=== PATIENT | male | born 1995 | race Caucasian/White ===

== ENCOUNTER 2025-01-05 16:16 | Emergency (ER) | payer OTHER, SELFPAY ==
--- NOTE | 2025-01-05 16:17 | ED.EAR ---
HPI - Ear Problem General Chief complaint: Ear Stated complaint: LT Ear Clogged Time Seen by Provider: 01/05/25 16:29 Source: patient, RN notes reviewed and old records reviewed Mode of arrival: ambulatory Limitations: no limitations History of Present Illness HPI Narrative: 29 male to [facility] with concerns for a cerumen impaction to the left ear States approximately 1 year ago he had to them irrigated again. States that he has been using Q-tips and irrigating his use with no relief. Decreased hearing for the last 2-3 day Related Data Home Medications ?Medication ?Instructions ?Recorded ?Confirmed ?Last Taken ?Type dextroamphetamine-amphetamine 10 01/05/25 Unknown History mg tablet lisdexamfetamine 60 mg capsule mg 01/05/25 Unknown History Allergies Allergy/AdvReac Type Severity Reaction Status Date / Time No Known Allergies Allergy Verified 01/05/25 16:29 Review of Systems Review of Systems: All systems reviewed & are unremarkable except as noted in HPI and below Constitutional: Constitutional: Reports no additional constitutional complaints ENT: Reports as per HPI Cardiovascular: Cardiovascular: Reports no additional cardiovascular complaints, Denies chest pain and Denies dyspnea Respiratory: Respiratory: Reports no additional respiratory complaints, Denies chest congestion, Denies cough and Denies dyspnea Musculoskeletal: Musculoskeletal: Reports no additional musculoskeletal complaints Integumentary/Breasts: Skin/Breast: Reports system reviewed and no additional complaints, except as docu PMFSH Comments At the time of my signature, I reviewed and agree with the nursing past medical, surgical, social, and family history. There is no relevant family history pertinent to the patient complaint. Exam Const: General: cooperative, healthy appearing, comfortable, no acute distress, well developed, alert and well nourished Nutritional Appearance: well nourished Orientation/consciousness: patient oriented x3 Limitations: no limitations HENMT: Head: normal to inspection Ears: hearing grossly normal bilaterally, external ears normal, EAC's normal, mastoids normal, Abnormal EAC present cerumen impaction bilateral and unable to visualize TM Mouth: Yes Normal oral and palatal mucosa present, Yes lip normal, Yes tongue normal and Yes moist mucous membranes Eyes: General: appearance normal, both eyes and all related structures Alignment and Position: alignment normal Neck: Neck: normal visual inspection, full ROM, no lymphadenopathy and no meningeal signs Chest: Chest palpation & inspection: normal inspection of the chest Resp: Effort & Inspection: normal respiratory effort and able to speak in complete sentences Cardio: Rate: regular rate Skin: General skin exam: normal color and no rashes or lesions noted Neuro: General: patient oriented x3, gait normal, moves all extremities and no meningeal signs Cognition (Neuro): normal cognition Speech: normal speech Gait exam (Neuro): Normal gait present Extrem: General: normal to inspection, full ROM, capillary refill normal and normal gait Psych: Appearance: grossly normal and well kempt Mental Status: mental status grossly normal Speech and movement: Normal speech and movement present and Clear speech present Affect: normal affect Attitude: cooperative Course Course Level of Care: Express Care Visit Vital Signs Vital signs: Vital Signs Temperature 97.6 F 01/05/25 16:29 Pulse Rate 63 01/05/25 16:29 Respiratory Rate 16 01/05/25 16:29 Blood Pressure 126/69 01/05/25 16:29 Pulse Oximetry 99 01/05/25 16:29 Oxygen Delivery Room Air 01/05/25 16:29 Temperature 97.6 F 01/05/25 16:29 Pulse Rate 63 01/05/25 16:29 Respiratory Rate 16 01/05/25 16:29 Blood Pressure 126/69 01/05/25 16:29 Pulse Oximetry 99 01/05/25 16:29 Oxygen Delivery Room Air 01/05/25 16:29 Reviewed Procedures Ear Wax Removal Both Ears: Ear Wax Removal Date: 01/05/25 Ear Wax Removal Time: 16:35 Cerumenolytic Used: other ( water peroxide) Results: Re-examined: cerumen removed completely TM Examination: TM(s) intact, normal appearance Ear Canal Exam: atraumatic Patient Tolerated Procedure: well Complications: no problems Technique: ear canal irrigated and ear canal curetted Medical Decision Making MDM Narrative Medical decision making narrative: Patient sitting comfortably in exam room. Nontoxic, vitals stable. Patient in no acute distress Patient presents for cerumen removal. Able to remove cerumen without difficulty using water peroxide and a curette. Patient tolerated well patient appropriate for outpatient treatment and follow-up Discharge instructions reviewed with patient, as well as provided in writing per nursing staff. The instructions also include specific and strict return/GO TO THE ER as well as f/u information. All questions have been answered, and the patient deny any further questions with discharge and discharge plan. Some parts of this dictation were generated by voice recognition software and may contain typographical and/or grammatical inaccuracies. Differential Diagnosis Differential Diagnosis: excessive cerumen Medical Records Medical records reviewed: Yes I reviewed the external patient's medical records. Vital Signs Vital Signs: Vital Signs Temperature 97.6 F 01/05/25 16:29 Pulse Rate 63 01/05/25 16:29 Respiratory Rate 16 01/05/25 16:29 Blood Pressure 126/69 01/05/25 16:29 Pulse Oximetry 99 01/05/25 16:29 Oxygen Delivery Room Air 01/05/25 16:29 Temperature 97.6 F 01/05/25 16:29 Pulse Rate 63 01/05/25 16:29 Respiratory Rate 16 01/05/25 16:29 Blood Pressure 126/69 01/05/25 16:29 Pulse Oximetry 99 01/05/25 16:29 Oxygen Delivery Room Air 01/05/25 16:29 Reviewed Lab Data Lab results reviewed: Yes I reviewed the patient's lab results. Labs: Reviewed Critical Care Time Critical Care Time Critical Care Time: No Discharge Plan Discharge Clinical Impression: Bilateral impacted cerumen Patient Disposition: Home, Self-Care Condition: Stable Instructions: Antibiotic Form, Carbamide Peroxide (Into the ear) Additional Instructions: You had Cerumen (EAR wax impaction). Do not use Q-tips or put anything in the ear. This can damage the ear. Instead , use Debrox or ear wax remover. Place 5 drops in ear after a hot shower and place a warm compress over the ear for 20 minutes. alternate doing this every 3-4 days. It will break up the wax gently. Do not use too much pressure. Once you have all of the cerumen out of your ears, you may do preventative treatment to prevent this from happening again. Use 5 drops once weekly after a hot shower. Patient Language: Greenlandic Prescriptions: No Action dextroamphetamine-amphetamine 10 mg tablet lisdexamfetamine 60 mg capsule Follow-up/Referrals: UNKNOWN,DOCTOR [Non-Staff] - Time of Disposition: 16:45
[2025-01-05 16:29] VITALS: BP 126/69; PULSE 63; RESP 16; TEMP 36.4; O2SAT 99
--- OUTSIDE RECORDS SUMMARY | 2025-01-05 17:25 | XMS_ITS | Clinical Summary ---
Author Organization [facility] Address [address] [place] [address] Care Team Providers Care General Internal Medicine Doctor Name Role Phone Dhaval Flores MD Primary Care Provider [phone] Source Comments [facility],non-owned Affiliates and Associated Physician Practices is amultiple site organization consisting of ambulatory clinics and hospital sitesin [place], [place], [place] and [place]. This disclosure is being madepursuant to the Care Everywhere program and may not contain all information available regarding this patient. Last updated 18.[facility] Allergies No known active allergies Medications * Be aware that medications may not be up to date on this document. Alwaysverify current medications with the patient. Medication Sig Dispensed Refills Start Date End Date Status mupirocin (Bactroban) 2 % ointmentIndications:F olliculitis Apply to affected area 3 times daily 22 g 08/09/2023 Active amphetamine-dextroamp hetamine XR 24hr (Adderall XR) 30 MG capsuleIndications:At tention deficit hyperactivity disorder (ADHD), combined type Take 1 (one) capsule by mouth every morning 30 capsule 12/17/2023 Active amphetamine-dextroamp hetamine (Adderall) 10 MG tabletIndications:Att ention deficit hyperactivity disorder (ADHD), combined type Take 1 (one) tablet by mouth every afternoon 30 tablet 12/17/2023 Active Active Problems Problem Noted Date Diagnosed Date Attention deficit hyperactiv ity disorder (ADHD), combined type 12/26/2020 Allergic rhinitis 07/18/2010 Migraine 05/20/2008 Anxiety Immunizations Name Administration Dates Next Due INFLUENZA VACCINE, TRIV. (AF LURIA, FLUZONE TRIVALENT; 6MO+) (IIV3) 07/31/2012 Covid Moderna primary monova lent 12+ yr 0.5mL 09/18/2021 Covid Pfizer primary monoval ent 12+ yr 0.3mL Purple cap 03/18/2021,02/28/2021 DTP 02/23/1999, 6,1994,09/19,1994 DTaP VACCINE IM (6wk-6yrs) 10/10/1995,,1994,07/30 FLU VACCINE TRI IIV3 SPLIT P F IM (FLUVIRIN) 07/23/2019,08/11/2018 HEP A PEDS 2 DOSE 08/03/2008,11/21/2007 HEP B VACCINE, PED/ADOL 1994,1994, HIB VACCINE 10/10/1995, 5,1994,07/30 HepB Unspecified formulation 1994,07/30/19 94,1994 INFLUENZA VACCINE 07/07/2021, 0,07/31/2015,07/24,07/31/2012,09/10/2009,08/23/1997 INFLUENZA VACCINE, CELL CULT URE, QUADR. (FLUCELVAX QUADRIVALENT; 6MO+) (CCIIV4) 06/07/2023 INFLUENZA VACCINE, QUADR. (F LUZONE; FLULAVAL; FLUARIX; AFLURIA QUADRIVALENT; 6MO+), 0.5 ML (IIV4) 07/19/2022,07/18/2022,07/07/2015 INFLUENZA VACCINE, TRIV. (FL UZONE; FLULAVAL; FLUARIX; AFLURIA TRIVALENT; 6MO+), 0.5 ML (IIV3) 07/31/2015 Influenza Nasal 07/18/2010 MENINGOCOCCAL CONJUGATE (MCV4P) 11/21/2007 MMR 02/23/1999,10/10/1995 POLIO IPV 02/04/1995, 5,1994,07/30 POLIO OPV 02/23/1999, 5,1994,07/30 TDAP (7yrs+) 05/09/2020, 3,11/21/2007,02/23 Family History Medical History Relation Name Comments Alcohol abuse Father Colon polyps Father Hypertension Father Cancer Maternal Grandfather Alcohol abuse Mother Cancer - Colon Other maternal grea t grandmother Relation Name Status Comments Father Maternal Grandfather Mother Alive Other Social History Tobacco Use Types Packs/Day Years Used Date Smoking Tobacco: Never Smokeless Tobacco: Never Alcohol Use Standard Drinks/Week Comments Yes 0 (1 standard drink = 0.6 oz pur e alcohol) AUDIT-C Answer Date Recorded Q1: How often do you have a drink containing alc ohol? 2-4 times a month 12/26/2020 Average Number of Drinks Not on file 021 Frequency of Binge Drinking Not on file 12/06 PHQ-2 Answer Date Recorded PHQ2 TOTAL SCORE 0 12/17/2022 Sex and Gender Information Value Date Recorded Sex Assigned at Not on file Gender Identity Male 06/30/2021 10:39 AM CDT Sexual Orientation Straight 06/30/2021 10 :39 AM CDT Last Filed Vital Signs Vital Sign Reading Time Taken Comments Blood Pressure 128/82 08/09/2023 2:34 PM CDT Pulse 87 08/09/2023 2:34 PM CDT Temperature 36.9 C (98.4 F) 02/16/2022 5:24 AM CDT Respiratory Rate 20 02/16/2022 5:24 AM CDT Oxygen Saturation 98% 08/09/2023 2:34 PM CDT Inhaled Oxygen Concentration - - Weight 85.3 kg (188 lb) 08/09/2023 2:34 PM CDT Height 182.9 cm (6') 08/09/2023 2:34 PM CDT Body Mass Index 25.5 08/09/2023 2:34 PM CDT Plan of Treatment Health Maintenance Due Date Last Done Comments COVID-19 VACCINE () 06/07/2024 09/18/2021, 03/18/2021, 02/28/2021 DEPRESSION SCREENING 10/07/2024 12/17/2022, 12/15/19 INFLUENZA VACCINE (Season Ended) 2025 06/07/2023, 07/19/2022, 07/18/2022, Additional history exists DTAP/TDAP/TD VACCINES (9 - Td or Tdap) 05/09/2030 05/09/2020, 02/20/2013, 11/21/2007, Additional history exists ZOSTER VACCINE (1 of 2) 2044 HEPATITIS B VACCINE Completed 1994, 1994, 1994, Additional history exists HIB VACCINE Completed 10/10/1995, 10/1994, 1994, Additional history exists MENINGOCOCCAL GROUPS A/C/Y/W VACCINE Aged Out 11/21/2007 No longer eligible based on patient's age to complete this topic HEPATITIS C SCREENING Completed 01/02/2021 HIV SCREENING Completed 01/02/2021 HPV VACCINE Aged Out No longer eligi ble based on patient's age to complete this topic MENINGOCOCCAL (Group B) VACCINE SHARED DECISION-MAKING Aged Out No longer eligible based on patient's age to complete this topic PNEUMOCOCCAL VACCINE Aged Out No long er eligible based on patient's age to complete this topic Procedures Procedure Name Priority Date/Time Associated Diagnosis Comments HEPATITIS C ANTIBODY Routine 01/02/2021 4:07 PM CDT Need for hepatitis C screening test HIV-1 HIV-2 ANTIBODY + HIV P24 AG PANEL Routine 01/02/2021 4:05 PM CDT Encounter for screening for HIV from Last 3 Months or Most Recently Relevant to Health Maintenance Results * HEPATITIS C ANTIBODY (01/02/2021 4:07 PM CDT) Hepatitis C Antibody Non Reactive Non Reactive [facility] INSURANCE BILL Comment: Non Reactive - Antibodies to Hepatitis C virus (HCV) were no t detected, result does not exclude early acute HCV infection. Blood BLOOD SPECIMEN / Unknown 01/02/2021 4:07 PM CDT 01/02/2021 Narrative Resulting Agency Comment Lab Testing performed at: [facility] [address] [place] [id number] Dhaval Flores MD LAB - CHEMISTRY [facility]UL[facility] INSURANCE BILL [address] [place] [address] * HIV-1 HIV-2 ANTIBODY + HIV P24 AG PANEL (01/02/2021 4:05 PM CDT) HIV Screen 4th Generation w Reflex Non Reactive Non Reactive [facility] INSURANCE BILL Blood BLOOD SPECIMEN / Unknown 01/02/2021 4:05 PM CDT 01/02/2021 Narrative Resulting Agency Comment Lab Testing performed at: [facility] [address] [phone] Dhaval Flores MD LAB - CHEMISTRY JUL[facility] SCH[facility] INSURANCE BILL [address] [place] [address] from Last 3 Months or Most Recently Relevant to Health Maintenance Care Teams General Internal Medicine Doctor Relationship Specialty Start Date End Date Dhaval Flores MD [address] [place] [address] PCP - General Family Medicine 09/17/22
--- OUTSIDE RECORDS SUMMARY | 2025-01-05 17:25 | XMS_ITS | Clinical Summary ---
Author Organization [facility] Administrative Offices Address [address] [place] [phone] Care Team Providers Care Homogenizer Operator Name Role Phone Sheree Hernandez Primary Care Provider [phone] Allergies Active Allergy Reactions Criticality Noted Date Comments Mold Cough Low 06/08/2016 Medications mupirocin (BACTROBAN) 2 % Ointment Apply to affected area 3 times daily. 08/09/20 23 Active HYDROcodone-aceta minophen (NORCO) 5-325 mg tablet Take 1 tablet by mouth every 6 hours as needed for pain 15 Tablet 4 3:48 PM CDT 06/02/20 24 Active Additional Information Patient not taking.Reported on 12/15/2024 hydrOXYzine HCL (ATARAX) 25 mg tabletIndications :DARIAN (generalized anxiety disorder) Take 1 Tablet (25 mg) by mouth 3 times daily as needed for Anxiety. 270 Tablet 3 5 4:56 PM CDT 12/16/19 25 Active lisdexamfetamine (VYVANSE) 60 mg capsuleIndication s:Attention deficit hyperactivity disorder (ADHD), combined type Take 1 Capsule (60 mg) by mouth daily in the morning. Max Daily Amount: 60 mg 30 Capsule 12/29/19 25 025 Active dextroamphetamine -amphetamine (ADDERALL) 10 mg tabletIndications :Attention deficit hyperactivity disorder (ADHD), combined type Take 1 Tablet (10 mg) by mouth daily after lunch. Max Daily Amount: 10 mg 30 Tablet 12/29/19 25 025 Active lisdexamfetamine (VYVANSE) 60 mg capsuleIndication s:Attention deficit hyperactivity disorder (ADHD), combined type Take 1 Capsule (60 mg) by mouth daily in the morning. Max Daily Amount: 60 mg 30 Capsule 01/25/20 25 025 Active dextroamphetamine -amphetamine (ADDERALL) 10 mg tabletIndications :Attention deficit hyperactivity disorder (ADHD), combined type Take 1 Tablet (10 mg) by mouth daily after lunch. Max Daily Amount: 10 mg 30 Tablet 01/25/20 25 025 Active lisdexamfetamine (VYVANSE) 60 mg capsuleIndication s:Attention deficit hyperactivity disorder (ADHD), combined type Take 1 Capsule (60 mg) by mouth daily in the morning. Max Daily Amount: 60 mg 30 Capsule 02/21/20 25 025 Active dextroamphetamine -amphetamine (ADDERALL) 10 mg tabletIndications :Attention deficit hyperactivity disorder (ADHD), combined type Take 1 Tablet (10 mg) by mouth daily after lunch. Max Daily Amount: 10 mg 30 Tablet 02/21/20 25 025 Active lisdexamfetamine (VYVANSE) 60 mg capsuleIndication s:Attention deficit hyperactivity disorder (ADHD), combined type Take 1 Capsule (60 mg) by mouth daily in the morning. Max Daily Amount: 60 mg 30 Capsule 5 5:18 PM MANAGER OF COMPLIANCE 11/15/19 25 025 Discontin ued(Reord er) dextroamphetamine -amphetamine (ADDERALL) 10 mg tabletIndications :Attention deficit hyperactivity disorder (ADHD), combined type Take 1 Tablet (10 mg) by mouth daily after lunch. Max Daily Amount: 10 mg 30 Tablet 5 5:18 PM MANAGER OF COMPLIANCE 11/15/19 25 025 Discontin ued(Reord er) Active Problems Problem Noted Date Diagnosed Date DARIAN (generalized anxiety disorder) 02/12/2024 Overview (02/12/2024): Previously prescribed hydroxyzine PRN, which he didn't try. Attention deficit hyperactiv ity disorder (ADHD), combined type 12/26/2020 Overview (02/12/2024): Well controlled on adderall XR 30mg QAM + adderal 10mg Allergic rhinitis 07/18/2010 Resolved Problems Problem Noted Date Diagnosed Date Resolved Date Anxiety 02/12/2024 02/12/2024 Syncope 02/12/2024 02/12/2024 Overview (02/12/2024): Likely vasovagal; normal exam today. Discussed at length with pt. and his mother. Ensure good hydration, especially after playing basketball. Keep event diary and schedule f/u visit in case of recurrence. Has appt. scheduled in one week to discuss migraines; advised to keep headache diary also and discussed possible migraine triggers. Scapular dyskinesis 07/02/2018 02/12/20 24 Strain of latissimus dorsi muscle 07/02/2018 02/12/2024 Episodic mood disorder 08/20/201702/11 Migraine 05/20/2008 02/12/2024 Encounters Date Type Department Care Team Description 12/15/2024 11:00 AM CDT Office Visit [facility] [address] [address] Sheree Hernandez, Attention deficit hyperactivity disorder (ADHD), combined type (Primary Dx); DARIAN (generalized anxiety disorder); Family history of carrier of genetic disease [Hereditary leiomyomatosis and renal cell cancer syndrome (HLRCC)}, paternal grandmother and aunt; Family history of uterine leiomyoma, paternal grandmother and aunt; Family history of renal cell carcinoma, paternal great cousin 12/01/2024 External Device Data [facility]STRACTION Provider, Abstract 11/04/2024 External Device Data [facility]CTION Provider, Abstract 10/29/2024 External Device Data [facility]STRACTION Provider, Abstract from Last 3 Months Immunizations Immunization Administration Dates Next Due (ADACEL/BOOSTRIX)(10 YR UP) TDAP VACCINE, 0.5ML, IM 05/09/2020,02/20/2013,11/21/2007,02/23 (HAVRIX/VAQTA)(12 MO-18 YRS) HEPATITIS A VACCINE 0.5 ML PED/ADOL 2 DOSE, IM 08/03/2008,11/21/2007 (INFANRIX)(6 WKS-6 YRS) DIPT HERIA, TETANUS TOXOIDS, AND ACCELLULAR PERTUSSIS VACCINE (DTAP), 0.5 ML IM 10/10/1995,1994,1994,07/30 (IPOL)(6 WKS AND UP) POLIOVI MARCELLA VACCINE, INACTIVATED (IPV), 3 DOSE, SUBCUT OR IM 02/04/1995,1994,1994,07/30 (M-M-R II/PRIORIX)(12 MO UP) MEASLES, MUMPS AND RUBELLA VIRUS VACCINE, 0.5 ML IM/SUBCUT 02/23/1999,10/10/1995 (MENACTRA)(9 MO-55 YR) MENIN GOCOCCAL POLYSACCHARIDE A, C, Y AND W-135 DIPTHERIA TOXOID CONJUGATE VACCINE, (PF), 0.5ML, IM 11/21/2007 (RECOMBIVAX HB/ENGERIX-B)(0- 19 YRS) HEPATITIS B VACCINE 5 MCG/0.5 ML OR 10 MCG/0.5 ML PED OR ADOL 3 DOSE (PF), IM 1994,1994,1994 Diptheria, Tetanus Toxoids, And Whole Cell Pertussis Vaccine (DTP), for intramuscular use 02/23/1999,10/10/1995,1994,09/19,1994 HIB, Unspecified Formulation 10/10/1995, 1994,1994,07/30 Hepatitis B Vaccine, Unspeci fied Formulation 1994,1994,1994 INFLUENZA VACCINE QUADRIVALE NT 6 MOS UP CELL DERIVED PF IM 06/07/2023 INFLUENZA VACCINE QUADRIVALE NT 6 MOS UP PF IM 07/19/2022,07/18/2022,07/07/2015 INFLUENZA VACCINE TRIVALENT SPLIT VIRUS, (6 MOS UP), 0.5ML (PF), IM 07/09/2024 Influenza Seasonal Unspecifi ed Formulation IM 07/31/2012 Influenza Seasonal Unspecifi ed Formulation Nasal 07/18/2010 Influenza Seasonal Unspecifi ed Formulation PF IM 07/23/2019,08/11/2018,07/31/2015 Influenza, Unspecified Formulation 07/07,07/21/2020,07/31/2015,07/24,07/31/2012,09/10/2009,08/23/1997 Poliovirus Vaccine Live Oral 02/23/1999, 1994,1994,07/30 Family History Medical History Relation Name Comments No Known Problems Brother Alcohol abuse Father Other Father barrets esophag us Cancer Maternal Grandfather lymphom a or leukemia 2/2 radioactive fallout from exposure [place] Colon Cancer Maternal Grandmother No Known Problems Mother Other Paternal Aunt hereditary lei omyomatosis and RCC due to fumarate hydratase gene mutation other Paternal Aunt uterine fibroi d No Known Problems Paternal Grandfather Heart Attack Paternal Grandmother Heart Disease Paternal Grandmother High Cholesterol Paternal Grandmother Hypertension Paternal Grandmother Other Paternal Grandmother heredit brittany leiomyomatosis and RCC due to fumarate hydratase gene mutation other Paternal Grandmother uterine fibroids Breast Cancer Neg Hx Diabetes Neg Hx Kidney Disease Neg Hx Lung Cancer Neg Hx Melanoma Neg Hx Ovarian Cancer Neg Hx Prostate Cancer Neg Hx Stroke Neg Hx Thyroid Disease Neg Hx Uterine Cancer Neg Hx Relation Name Status Comments Brother Alive Father Maternal Grandfather Maternal Grandmother Alive Mother Alive Paternal Aunt Alive Paternal Grandfather Paternal Grandmother Alive Social History Tobacco Use Types Packs/Day Years Used Date Smoking Tobacco: Never Tobacco Cessation:Counseling Given: Not Answered Alcohol Use Standard Drinks/Week Comments Never 0 (1 standard drink = 0.6 oz pur e alcohol) Sex and Gender Information Value Date Recorded Sex Assigned at Not on file Legal Sex Male 11:35 PM CDT Gender Identity Not on file Sexual Orientation Not on file Last Filed Vital Signs Vital Sign Reading Time Taken Comments Blood Pressure 116/74 12/15/2024 11:13 AM CDT Pulse 68 12/15/2024 11:13 AM CDT Temperature 36.3 C (97.3 F) 12/15/2024 11:13 AM CDT Respiratory Rate 11 12/15/2024 11:13 AM CDT Oxygen Saturation 98% 12/15/2024 11:13 AM CDT Inhaled Oxygen Concentration - - Weight 83.7 kg (184 lb 9.6 oz) 12/15/2024 11:13 AM CDT Height 182.9 cm (6') 12/15/2024 11:13 AM CDT Body Mass Index 25.04 12/15/2024 11:13 AM CDT Plan of Treatment Upcoming Encounters Date Type Department Care Team (Late st Contact Info) Description 03/23/2025 4:00 PM CDT Video Visit [facility] Primary [facility] - [place] [address] [place] [address] [place] [address] [address] [place] [address] 05/05/2025 3:00 PM CDT Office Visit [facility] [place] [address] [place] [address] Shannan-Atif Rosa Elena, [facility] [address] [place] [address] Health Maintenance Due Date Last Done Comments COVID-19 Vaccine (2023- season) 2024 09/18/2021, 03/18/2021, 02/28/2021 Preventative Visit- Commercial 10/07/2024 02/12/2024, 12/26/2020 DTAP/TDAP/TD VACCINES (9 - Td or Tdap) 05/09/2030 05/09/2020, 02/20/2013, 11/21/2007, Additional history exists HEPATITIS B VACCINES Completed 1994, 1994, 1994, Additional history exists INFLUENZA VACCINE Completed 07/09/2024, , 07/19/2022, Additional history exists HPV VACCINES Aged Out No longer eligi ble based on patient's age to complete this topic Insurance [facility] [employer] (INTERNAL) [facility] [employer] Member Subscriber Plan / Payer (Ef fective for All Dates) Name:Narinder Juaerz Relation to Subscriber:Self Name:Narinder Juarez Payer ID:Not on file Type:Not on file Address: [place] Care Teams Homogenizer Operator Relationship Specialty Start [place] [address] [address] [place] [id number] PCP - General Family Practice 02/12/24
--- OUTSIDE RECORDS SUMMARY | 2025-01-05 17:29 | XMS_ITS | Encounter Summary ---
Author Organization [facility] Address [address] [place] [address] Care Team Providers Care Loss Prevention/Safety District Manager Name Role Phone Unavailable Primary Care Provider Unavailabl e Prior Encounters Date Type Department Care Team Description 10/26/2019 Converted CPS Chart Documents [facility] [address] [place] [id number] <No scans attached> 10/26/2019 Converted CPS Chart Documents [facility] [id number] [place] [address] <No scans attached> 10/26/2019 Converted 13x Documents [facility] [address] [place] [address] <No scans attached> 10/26/2019 Converted 13x Documents [facility] [id number] [place] [address] <No scans attached> Plan of Treatment Not on file Procedures Procedure Name Priority Date/Time Associated Diagnosis Comments ORAL SURG CONSULT Routine 02/02/2017 2:0 0 AM CDT 16 REMOVAL OF IMPACTED TOOTH - COMPLETELY BONY Routine 02/02/2017 2:00 AM CDT 32 EXTRACTION, ERUPTED TOOTH REQUIRING REMOVAL OF BONE AND/OR SECTIONING OF TOOTH Routine 02/02/2017 2:00 AM CDT THERAPEUTIC PARENTERAL DRUGS, TWO OR MORE ADMINISTRATIONS, DIFFERENT MEDICATIONS Routine 02/02/2017 2:00 AM CDT DEEP SEDATION/GENERAL ANESTHESIA EACH SUBSEQUENT 15 MINUTE INCREMENT Routine 02/02/2017 2:00 AM CDT DEEP SEDATION/GENERAL ANESTHESIA EACH SUBSEQUENT 15 MINUTE INCREMENT Routine 02/02/2017 2:00 AM CDT DEEP SEDATION/GENERAL ANESTHESIA EACH SUBSEQUENT 15 MINUTE INCREMENT Routine 02/02/2017 2:00 AM CDT COMPREHENSIVE ORAL EVALUATION - NEW OR ESTABLISHED PATIENT Routine 12/03/2016 2:00 AM OUTBOARD MOTOR INSPECTOR ORAL HYGIENE INSTRUCTIONS Routine 2016 2:00 AM OUTBOARD MOTOR INSPECTOR PROPHYLAXIS - ADULT Routine 12/03/2016 2 :00 AM OUTBOARD MOTOR INSPECTOR PANORAMIC RADIOGRAPHIC IMAGE Routine 12/03/2016 2:00 AM OUTBOARD MOTOR INSPECTOR INTRAORAL - COMPREHENSIVE SERIES OF RADIOGRAPHIC IMAGES Routine 12/03/2016 2:00 AM OUTBOARD MOTOR INSPECTOR INTRAORAL PHOTO Routine 12/03/2016 2:00 AM OUTBOARD MOTOR INSPECTOR INTRAORAL PHOTO Routine 12/03/2016 2:00 AM OUTBOARD MOTOR INSPECTOR INTRAORAL PHOTO Routine 12/03/2016 2:00 AM OUTBOARD MOTOR INSPECTOR INTRAORAL PHOTO Routine 12/03/2016 2:00 AM OUTBOARD MOTOR INSPECTOR Visit Diagnoses Not on file
--- OUTSIDE RECORDS SUMMARY | 2025-01-05 17:29 | XMS_ITS | Clinical Summary ---
Author Organization [facility] Address [address] [place] [address] Care Team Providers Care [employer] Consultant Name Role Phone Unavailable Primary Care Provider Unavailabl e Social History Tobacco Use Types Packs/Day Years Used Date Smoking Tobacco: Never Assessed Sex and Gender Information Value Date Recorded Sex Assigned at Not on file Legal Sex Male 12:15 AM PST Gender Identity Not on file Sexual Orientation Not on file Plan of Treatment Not on file
== END 2025-01-05 16:47 | disposition home or self-care (01) ==
PROVIDERS: Emergency Provider Nurse Practitioner
DX: H61.23 Impacted cerumen, bilateral (principal)
CPT/HCPCS: 69210; 99212; A9270; G0463